=== PATIENT | female | born 1955 | race Caucasian/White ===

== ENCOUNTER 2017-12-08 15:58 | Emergency (ER) | payer SELFPAY ==
[~2017-12-08 15:58] MED LIST: Donnatal Elixir 16.2 MG/5 ML UDCUP ONE
[2017-12-08 16:22] LABS: #Basophils 0.1 thou/uL (0.0-0.2); #Eosinphils 0.1 thou/uL (0.0-0.7); #Lymphocytes 2.6 thou/uL (1.20-3.40); #Monocytes 0.5 thou/uL (0.11-0.59); %Basophils 1.6 % (0.0-1.0); %Lymphocytes 40.9 % (21.0-51.0); %Monocytes 7.5 % (0.0-10.0); Hemoglobin 13.5 g/dL (12.0-16.0); Mean Corpuscular HGB CONC 35.4 g/dL (32.0-36.0); Mean Corpuscular Hemoglobin 32.8 pg (27.0-31.0); Mean Corpuscular Volume 92.6 fl (81.0-99.0); Mean Platelet Volume 6.8 fL (7.4-10.4); Platelet Count 220 thou/uL (130-400); RBC Distribution Width 12.2 % (11.5-14.5); Red Blood Cell (RBC) Count 4.12 mill/uL (4.20-5.40); White Blood Cell (WBC) Count 6.2 thou/uL (4.8-10.8)
[2017-12-08 16:26] LABS: INR-International Normal Ratio 0.9; PTT 26.9 SEC (22.9-36.1); Prothrombin Time 12.4 SEC (12.0-14.7)
[2017-12-08 16:36] LABS: ALT (SGPT) 24 U/L (8-55); AST (SGOT) 22 U/L (5-34); Albumin 4.4 g/dL (3.4-4.8); Alkaline Phosphatase 64 U/L (40-150); Anion Gap 13 mmol/L (10-20); BUN (Urea Nitrogen) 13 mg/dL (9.8-20.1); Bilirubin, Total 0.4 mg/dL (0.2-1.2); CK (CPK) 72 U/L (29-168); Calc. Creatinine Clearance 0 mL/min (70-130); Calcium 9.3 mg/dL (7.8-10.44); Carbon Dioxide 23 mmol/L (23-31); Chloride 108 mmol/L (98-107); Estimated GFR-MDRD Greater than 90; Globulin 2.1 g/dL (2.4-3.5); Glucose 96 mg/dL (80-115); Magnesium 1.6 mg/dL (1.6-2.6); Potassium 4.1 mmol/L (3.5-5.1); Protein, Total 6.5 g/dL (6.0-8.3); Sodium 140 mmol/L (136-145)
[2017-12-08 16:38] LABS: CKMB 0.8 ng/mL (0-6.6); Troponin I Less than 0.010 ng/mL (< 0.028)
--- NOTE | 2017-12-08 16:39 | RAD ---
RADIOGRAPH CHEST 1 VIEW: 12/08/17 HISTORY: 62-year-old female with acute chest pain. FINDINGS: There are no air space densities, pulmonary edema, pneumothorax, or cardiomegaly. The lateral costop hrenic angles are sharp. IMPRESSION: No acute cardiopulmonary findings. mai [] POS: HENRRY
[2017-12-08] MEDS ORDERED: Donnatal Elixir 16.2 MG/5 ML UDCUP ONE (16:50)
[2017-12-08] MEDS ORDERED: Lidocaine Viscous Sol 2% 15 ml UD Cup ONE (16:50)
[2017-12-08] MEDS ORDERED: Mag-Al Plus 1200 MG/1200 MG/120 MG/30 ML UDCUP ONE (16:50)
== END 2017-12-08 18:00 | disposition home or self-care (01) ==
LOC: MADERS 15:58
DX: K21.9 Gastro-esophageal reflux disease without esophagitis (principal); K58.9 Irritable bowel syndrome, unspecified; M19.90 Unspecified osteoarthritis, unspecified site; G62.9 Polyneuropathy, unspecified
CPT/HCPCS: 71045; 80053; 82550; 82553; 83735; 83880; 84484; 85025; 85610; 85730; 93005; 94760

== ENCOUNTER 2018-09-29 09:59 | Emergency (ER) | payer SELFPAY | END 2018-09-29 11:15 | disposition home or self-care (01) | LOC: MADERS 09:59 | DX: M19.90 Unspecified osteoarthritis, unspecified site (principal); T78.40XA Allergy, unspecified, initial encounter; K58.9 Irritable bowel syndrome, unspecified; F41.9 Anxiety disorder, unspecified; F31.9 Bipolar disorder, unspecified | CPT/HCPCS: 99282 ==

== ENCOUNTER 2018-09-29 16:57 | Emergency (ER) | payer SELFPAY ==
[2018-09-29] MEDS ORDERED: EPINEPHrine 1 MG/ML AMP ONE (17:53)
[2018-09-29] MEDS ORDERED: diphenhydrAMINE 25 MG CAP ONE ×2 (17:59→19:21)
[2018-09-29] MEDS ORDERED: Famotidine 20 MG TAB ONE (17:59)
== END 2018-09-29 19:39 | disposition home or self-care (01) ==
LOC: MADERS 16:57
DX: L50.0 Allergic urticaria (principal); K58.9 Irritable bowel syndrome, unspecified; M19.90 Unspecified osteoarthritis, unspecified site; F31.9 Bipolar disorder, unspecified; F41.9 Anxiety disorder, unspecified; Z79.899 Other long term (current) drug therapy
CPT/HCPCS: 93005; 96372; J0171; Q0163

== ENCOUNTER 2018-09-30 04:29 | Observation (INO) | payer SELFPAY ==
[2018-09-30] MEDS ORDERED: EPINEPHrine 1 MG/ML AMP ONE (05:03)
[2018-09-30] MEDS ORDERED: Enoxaparin Sodium 40 MG/0.4 ML SYRINGE ONE (08:06)
[2018-09-30] MEDS ORDERED: EPINEPHrine 1 MG/ML AMP IM PRN (08:46)
[2018-09-30] MEDS ORDERED: Ondansetron ODT 4 MG TAB PO PRN (08:48)
[2018-09-30] MEDS ORDERED: HYDROcodone/Acetaminophen 5/325 mg Tablet PO PRN ×2 (08:48)
[2018-09-30] MEDS: Famotidine 20 MG TAB PO SCH ×2 (08:57→21:46)
[2018-09-30] MEDS: diphenhydrAMINE 25 MG CAP PO PRN ×3 (08:57→21:47)
[2018-09-30 10:21] VITALS: BMI 23.8
[2018-09-30] MEDS ORDERED: Acetaminophen 325 MG TAB PO PRN (11:48)
[2018-09-30] MEDS ORDERED: Oxymetazoline HCl 0.05% ( 15 ML ) NASAL PRN ×2 (11:51→12:05)
[2018-09-30] MEDS ORDERED: Benzonatate 100 MG CAP PO PRN (11:51)
[2018-09-30] MEDS ORDERED: Albuterol Sulfate 2.5 mg/3 ml Neb NEB PRN (11:51)
[2018-09-30] MEDS ORDERED: predniSONE 20 MG TAB PO SCH (13:00)
[2018-09-30] MEDS: Gabapentin 300 MG CAP PO SCH ×2 (14:32→21:46)
[2018-09-30] MEDS ORDERED: Naproxen 500 MG TAB PO SCH (21:00)
[2018-09-30] MEDS ORDERED: Amitriptyline HCl 25 MG TAB PO SCH (21:00)
[2018-10-01] MEDS: diphenhydrAMINE 25 MG CAP PO PRN ×4 (04:27→16:26)
[2018-10-01] MEDS ORDERED: predniSONE 20 MG TAB PO SCH ×2 (08:00)
--- NOTE | 2018-10-01 08:03 | HP ---
PRIMARY CARE PHYSICIAN: Dr. Harris. CHIEF COMPLAINT: Generalized rash. HISTORY OF PRESENT ILLNESS: Ms. Nicole is a 63-year-old female, who presented to the ER yesterday due to severe rash to lower back, ear, and chest area. The patient states she applied Salonpas Lidocaine patch, which she has used for almost a year to her back, but she feels she kept it longer this time. She states then she started noticing severe itching and rash to her lower back and the rash progressively spread to the upper body. The patient was seen in the emergency room twice yesterday. Initially, she was given prednisone 60 mg and Benadryl 25. She was discharged home. The patient presented again yesterday back to the emergency room complaining of extensive rash. She was given famotidine 20, Benadryl, and epi 0.3. The patient again presented this morning due to worsening of the rash, discomfort, unable to sleep and just having possibly an anxiety attack. The patient was given two doses of epi 0.3 in the emergency room and the decision was made to admit her for observation. Upon evaluation of the patient on the floor, she states she is still itching. She denies any new products, any new foods. She states she is a homebody. She denies any triggers other than this Salonpas Lidocaine patch. The patient states she feels slightly better today compared to yesterday, but she is still having itching and burning sensation to the upper chest, lower back, and ear area. REVIEW OF SYSTEMS: The patient complains of generalized itching. She complains of burning to lower back and chest. Otherwise, negative for fever, night sweats, blurry vision, abdominal pain, chest pain, shortness of breath, palpitation, nausea, vomiting, or diarrhea. PAST MEDICAL HISTORY: Neuropathy, depression, anxiety, bipolar. PAST SURGICAL HISTORY: None. ALLERGIES: CAPSAICIN, MENTHOL. FAMILY HISTORY: Noncontributory. SOCIAL HISTORY: The patient denies alcohol use or illicit drug use. She denies any tobacco use. MEDICATIONS: Lexapro 20 daily, amitriptyline 25 at bedtime, gabapentin 300 t.i.d. PHYSICAL EXAMINATION: VITAL SIGNS: Temperature 98.4, pulse 91, respirations 18, O2 saturations 100% on room air, blood pressure 135/58. GENERAL: The patient is alert, awake, oriented x3, somewhat anxious. HEENT: Normocephalic, atraumatic. Pupils round, reactive, equal to light. Sclerae nonicteric. Oral mucous membrane moist. NECK: Supple. No JVD. CARDIOVASCULAR: S1 and S2. No murmurs. LUNGS: Clear to auscultation bilaterally. ABDOMEN: Soft. Positive bowel sounds. No tenderness. No abdominal distention. EXTREMITIES: No edema, clubbing, or cyanosis. NEUROLOGIC: Alert, awake, oriented x3. No focal deficits. SKIN: Erythematous excoriation and rash to upper chest wall and ear. Extensive rash and excoriation to lower back area, where she she had a big patch to her back. Warm to touch. No signs of infection. ASSESSMENT AND PLAN: This is a 63-year-old female with a history of bipolar disorder, neuropathy, and anxiety, who is currently being needed in observation for allergic reaction. The patient is admitted for acute allergic reaction. We will start on Benadryl 50 mg q.4 p.r.n. itching. We will start on prednisone taper 60 mg for three days, 40 mg for three days, 20 mg for three days, and then 10 mg for three days to complete a total of 12 days. We will resume home medications. The patient can use Silvadene patch to generalized body area, cold compresses to the area. We will resume home medications. The patient was encouraged increase hydration. The patient will be observed overnight with a chance of discharge back to home with her tomorrow and continuation of steroid taper at home. The patient was advised to stay away from the Salonpas Lidocaine patch. CODE STATUS: The patient is full code. Job ID: [id number] [facility]
[2018-10-01] MEDS: Gabapentin 300 MG CAP PO SCH ×2 (08:52→15:09)
[2018-10-01] MEDS: Famotidine 20 MG TAB PO SCH (08:53)
[2018-10-01] MEDS ORDERED: ESCITALOPRAM OXALATE 20 MG PO SCH (09:00)
[2018-10-01] MEDS ORDERED: Enoxaparin Sodium 40 MG/0.4 ML SYRINGE SC SCH (09:00)
[2018-10-01] MEDS ORDERED: Escitalopram Oxalate 10 mg Tablet PO SCH (09:00)
[2018-10-01 12:04] VITALS: BP 158/70; TEMP 97.8
[2018-10-01] MEDS ORDERED: hydrOXYzine 25 MG TAB PO PRN (12:43)
[2018-10-03] MEDS ORDERED: predniSONE 20 MG TAB PO SCH (08:00)
[2018-10-06] MEDS ORDERED: predniSONE 20 MG TAB PO SCH (08:00)
[2018-10-09] MEDS ORDERED: predniSONE 20 MG TAB PO SCH (08:00)
== END 2018-10-01 16:44 | disposition home or self-care (01) ==
LOC: MADERS 04:29 → MADMS 07:34 → UNDOADMIN 07:34 → MADMS 07:34
PROVIDERS: ADMIT Family Medicine; ATTEND Family Medicine
DX: L25.1 Unspecified contact dermatitis due to drugs in contact with skin (principal); T41.3X5A Adverse effect of local anesthetics, initial encounter; T50.995A Adverse effect of other drugs, medicaments and biological substances, initial encounter; F31.9 Bipolar disorder, unspecified; F41.9 Anxiety disorder, unspecified; G62.9 Polyneuropathy, unspecified; Z79.899 Other long term (current) drug therapy; Z79.1 Long term (current) use of non-steroidal anti-inflammatories (NSAID); Z79.52 Long term (current) use of systemic steroids
CPT/HCPCS: 96372; G0378; J0171; J1650; J7506; Q0163

== ENCOUNTER 2021-05-04 09:13 | Outpatient (CLI) | payer MEDICARE | END 2021-05-04 09:14 | disposition home or self-care (01) | LOC: MADLAB 09:13 | PROVIDERS: ATTEND Family Medicine | DX: M25.561 Pain in right knee (principal); M25.461 Effusion, right knee ==

== ENCOUNTER 2021-10-26 18:09 | Emergency (ER) | payer MEDICARE ==
[2021-10-26] MEDS ORDERED: Fluorescein Opthalmic Strip ONE (18:52)
[2021-10-26] MEDS ORDERED: Tetracaine 0.5% PF 4 ML BOT ONE (18:53)
[2021-10-26] MEDS ORDERED: Tobramycin Sulfate 0.3% Ophth Susp 5 ml Bottle ONE (19:52)
== END 2021-10-26 19:55 | disposition home or self-care (01) ==
LOC: MADERS 18:09
DX: S05.01XA Injury of conjunctiva and corneal abrasion without foreign body, right eye, initial encounter (principal); F17.210 Nicotine dependence, cigarettes, uncomplicated; E11.40 Type 2 diabetes mellitus with diabetic neuropathy, unspecified; X58.XXXA Exposure to other specified factors, initial encounter
CPT/HCPCS: 99283

== ENCOUNTER 2022-04-26 10:30 | Outpatient (CLI) | payer MEDICARE, OTHER ==
[2022-04-26 11:09] LABS: ALT (SGPT) 24 U/L (8-55); AST (SGOT) 22 U/L (5-34); Albumin 4.2 g/dL (3.4-4.8); Alkaline Phosphatase 71 U/L (40-110); Anion Gap 14 mmol/L (10-20); BUN (Urea Nitrogen) 10 mg/dL (9.8-20.1); Bilirubin, Total 0.3 mg/dL (0.2-1.2); Calc. Creatinine Clearance 0 mL/min (70-130); Calcium 9.3 mg/dL (7.8-10.44); Carbon Dioxide 25 mmol/L (23-31); Cardiac Risk 3.1 (Less than 4.5); Chloride 105 mmol/L (98-107); Cholesterol 184 mg/dl (< 200 Desired); Estimated GFR 97; Globulin 2.8 g/dL (2.4-3.5); Glucose 111 mg/dL (80-115); HDL Cholesterol 59 mg/dL (>60 Neg Risk); LDL Cholesterol, Calculated 109 mg/dL; Potassium 4.4 mmol/L (3.5-5.1); Sodium 140 mmol/L (136-145); Triglycerides 79 mg/dL (Less than 150)
[2022-04-26 11:22] LABS: Thyroid Stimulating Hormone 0.8245 uIU/mL (0.35-4.94)
[2022-04-26 17:11] LABS: Free T4 (Free Thyroxine) 0.84 ng/dL (0.70-1.48)
[2022-04-26 17:46] LABS: Creatinine, Urine 82.75 mg/dL (47-110); Microalbumin Urine 1.8 mg/dL (0.5-50.0); Microalbumin/Creat Ratio 21.8 mg/g (Less than 30)
== END 2022-04-26 10:31 | disposition home or self-care (01) ==
LOC: MADLABBHPM 10:30 → MADLAB 10:31
PROVIDERS: ATTEND Family Medicine
DX: E78.5 Hyperlipidemia, unspecified (principal); R73.09 Other abnormal glucose
CPT/HCPCS: 80053; 80061; 82043; 83036; 84439; 84443; 84481

== ENCOUNTER 2025-04-11 10:05 | Outpatient (CLI) | payer MEDICARE | END 2025-04-11 10:06 | disposition home or self-care (01) | LOC: MADRAD 10:05 | PROVIDERS: ATTEND Family Medicine | DX: M54.50 Low back pain, unspecified (principal); M47.816 Spondylosis without myelopathy or radiculopathy, lumbar region | CPT/HCPCS: 72110 ==